=== PATIENT | male | born 1960 | race Caucasian/White ===

== ENCOUNTER 2020-01-29 00:29 | Day surgery (SDC) | payer OTHER, SELFPAY ==
[2020-01-23 13:08] VITALS: BMI 37.2
[2020-01-29 06:39] VITALS: BP 140/79; PULSE 80; RESP 16; TEMP 36.7; O2SAT 95; BMI 36.7
--- NOTE | 2020-01-29 06:59 | WPDANESEPPF ---
Anes - Initial Pre Proc Eval Procedure: Operation Date: 01/29/20 07:30 Proposed Procedures p Screening Colonoscopy - Dusty Mendieta MD Date/Time: 01/29/20 06:59 Surgeon: Dusty Mendieta MD Pre Op Diagnosis: Neoplasm Screening Patient Data Age: 59 Gender: M Height: 1.91 m Weight: 133.2 kg Last Vital Signs Temp 36.7 C 01/29/20 06:39 Pulse 80 01/29/20 06:39 Resp 16 01/29/20 06:39 BP 140/79 01/29/20 06:39 Pulse Ox 95 01/29/20 06:39 Allergies Allergy/AdvReac Type Severity Reaction Status Date / Time No Known Allergies Allergy Mild Verified 01/29/20 06:37 Home Medications Medication Instructions Recorded Confirmed Type lactobacillus rhamnosus R0011 1 cell PO DAILY 01/23/20 01/23/20 History [Probiotic Digestive Care] Patient hx anesthesia problems: none Family hx anesthesia problems: none PMFSH Surgical History Surgical History (Updated 01/28/20 @ 09:49 by Francisco Dallas DO) History of spinal surgery Anes - Eval Final PreProcedure Day of Procedure 01/29/20 06:59 Patient weight: obese Heart: regular rate and rhythm Lungs: clear to auscultation and normal air movement Airway: Mallampati scale class III Neurological: alert and oriented Last oral intake: >/= 8 hours ASA classification: II Emergent: no Anesthetic plan: proceed Anesthesia type and monitoring: general GIVS and standard monitoring Informed Consent: The patient's anesthetic plan and its attendant risks and benefits were discussed with the patient/family/POA. Questions were solicited and answers provided to the satisfaction of the patient/family/POA.
[2020-01-29] MEDS: LACTATED RINGERS 1,000 ML 150 ML IV CONT (07:01)
--- NOTE | 2020-01-29 07:33 | PM.HPGS ---
History of Present Illness History of Present Illness Consent: Risks, benefits, and alternatives have been discussed and questions answered. Patient agrees to proceed with procedure. Chief complaint: Neoplasm Screening Narrative: Dieudonne Russ is a 59 year old male here for his first screening colonoscopy Review of Systems Constitutional: Constitutional: Denies headache(s) and Denies weakness Eyes: Eyes: Denies blurry vision ENT: Reports Normal hearing present, Denies headache(s) and Denies neck pain Cardiovascular: Cardiovascular: Denies chest pain and Denies dyspnea Respiratory: Respiratory: Denies dyspnea Gastrointestinal: Gastrointestinal: Reports no additional gastrointestinal complaints Genitourinary: Genitourinary: Denies dysuria Musculoskeletal: Musculoskeletal: Denies neck pain Integumentary/Breasts: Skin/Breast: Denies dry skin Neurologic: Reports Normal hearing present, Denies headache(s) and Denies weakness Psychiatric: Psychiatric: Denies anxiety Endocrine: Endocrine: Denies change in body appearance Hematologic/Lymphatic: Hematologic/Lymphatic: Denies easy bleeding Allergic/Immunologic: Allergic/Immunologic: Denies urticaria PMFSH Past Medical History Medical History (Updated 01/29/20 @ 07:33 by Dusty Mendieta MD) Colon cancer screening Surgical History Surgical History (Updated 01/28/20 @ 09:49 by Francisco Dallas DO) History of spinal surgery Meds Home Medications and Allergies Home Medications Medication Instructions Recorded Confirmed Type lactobacillus rhamnosus R0011 1 cell PO DAILY 01/23/20 01/23/20 History [Probiotic Digestive Care] Allergies Allergy/AdvReac Type Severity Reaction Status Date / Time No Known Allergies Allergy Mild Verified 01/29/20 06:37 Vital Signs Vital Signs - 24 hr 01/29/20 06:39 Temperature 98.0 F Pulse Rate 80 Respiratory Rate 16 Blood Pressure 140/79 Pulse Oximetry 95 Exam Const: General: comfortable and no acute distress HENMT: General nose exam: Normal nares present Eyes: General: appearance normal, both eyes and all related structures Neck: Neck: no JVD Resp: Auscultation: clear to auscultation bilaterally Cardio: Rate: regular rate Rhythm: regular rhythm GI: Inspection: non-distended GI Palp: Yes Soft to palpation Skin: General skin exam: normal color Neuro: General: gait normal Speech: normal speech Extrem: General: normal to inspection Psych: Mental Status: mental status grossly normal Assessment and Plan Assessment and plan (1) Colon cancer screening: Code(s): Z12.11 - Encounter for screening for malignant neoplasm of colon Status: Acute Assessment and Plan: will proceed with colonoscopy
[2020-01-29 08:08] VITALS: BP 80/45; PULSE 59; RESP 16; O2SAT 94
[2020-01-29 08:09] VITALS: BP 93/53; PULSE 60; RESP 16; O2SAT 94
--- NOTE | 2020-01-29 08:14 | SUR.PHASEII ---
CORRECTION: CHARTING AT 0808 SHOULD HAVE BEEN CHARTED FOR 0759.
[2020-01-29 08:24] VITALS: BP 103/57; PULSE 60; RESP 16; O2SAT 94
== END 2020-01-29 08:37 | disposition home or self-care (01) ==
PROVIDERS: PCP Family Medicine Sports Medicine; Visit Provider Internal Medicine Gastroenterology
PROC: 0DJD8ZZ Inspection of Lower Intestinal Tract, Via Natural or Artificial Opening Endoscopic (ICD-10-PCS; CPT 45378; principal; 2020-01-29 07:30)
DX: Z12.11 Encounter for screening for malignant neoplasm of colon (principal); D12.3 Benign neoplasm of transverse colon; D12.4 Benign neoplasm of descending colon; K63.5 Polyp of colon; K57.30 Diverticulosis of large intestine without perforation or abscess without bleeding; E66.9 Obesity, unspecified; Z68.36 Body mass index [BMI] 36.0-36.9, adult
CPT/HCPCS: 45385; 88305; J2704; J7120

== ENCOUNTER 2023-03-03 10:09 | Emergency (ER) | payer OTHER, SELFPAY ==
--- NOTE | ~2023-03-03 | XR_ITS ---
EXAMINATION: XR lumbar spine 2-3V DATE: 03/03/2023 11:02 INDICATION: Low back pain TECHNIQUE: Anteroposterior and lateral views of the lumbar spine, and cone-down lateral view of the l umbosacral junction were obtained. COMPARISON: None. FINDINGS: No fracture, dislocation, or subluxation. There is moderate loss of intervertebral disc spa ce height at L4-5 and L5-S1. The vertebral body heights are maintained. There is moderate facet joint osteoarthritis of the lower lumbar spine. IMPRESSION: 1. Moderate lumbar spondylosis without acute findings. Reviewed, dictated and finalized at location A.
[2023-03-03 10:23] VITALS: BP 147/95; PULSE 87; RESP 14; TEMP 36.6; O2SAT 97
--- NOTE | 2023-03-03 10:46 | ED.BACK ---
HPI - Back Pain/Injury General Chief Complaint: Back Pain/Injury Stated Complaint: Back Pain Source: patient History of Present Illness HPI Narrative: 62-year-old male presents to urgent care with complaints of tailbone pain. Patient states on Sunday he was only on something when he slipped and fell directly onto his tailbone. Patient states the pain goes into his left buttock. Patient states he is having some numbness and tingling down his left leg. Denies any saddle anesthesia, incontinence of urine or stool, fevers, chills, chest pain, shortness of breath. Patient has been taking ibuprofen at home without relief. Some parts of this dictation were generated by voice recognition software and may contain typographical and/or grammatical inaccuracies. Related Data Home Medications Medication Instructions Recorded Confirmed Lactobacillus rhamnosus GG 20 1 cell PO DAILY 01/23/20 03/03/23 billion cell capsule (Probiotic Digestive Care) Allergies Allergy/AdvReac Type Severity Reaction Status Date / Time No Known Allergies Allergy Mild Verified 03/03/23 10:42 Review of Systems Review of Systems: Pertinent positives and pertinent negatives per HPI. [facility], [facility] Past Medical History Medical History (Updated 03/03/23 @ 11:25 by Neelima Lockhart, ELIAZAR) Bloating Colon cancer screening Colon, diverticulosis Irritable bowel syndrome with constipation Surgical History Surgical History (Reviewed 02/04/20 @ 08:17 by Mariam Matthews [facility] [address]) History of spinal surgery Comments At the time of my signature, I reviewed and agree with the nursing past medical, surgical, social, and family history. There is no relevant family history pertinent to the patient complaint. Exam Narrative: GENERAL: This is a well-nourished, well-developed patient, in no apparent distress. HEAD: normocephalic, atraumatic. EYES: Sclera clear/white. Vision is grossly intact. EARS: External ears normal, auditory canals clear and without drainage. Hearing grossly intact. NOSE: External nose normal with no obvious nasal discharge, nares without redness, no rhinorrhea. THROAT: Mucous membranes moist, posterior pharynx clear. NECK: Neck supple, non-tender without lymphadenopathy, masses or thyromegaly. CARDIOVASCULAR: Regular rate RESPIRATORY: No respiratory distress SKIN: warm, intact with no suspicious lesions or rash, good texture and turgor. NEURO: awake, alert, and oriented to person, place and time. There were no obvious focal neurologic abnormalities. EXTREMITIES: No clubbing, cyanosis, or edema. No joint tenderness, effusion, or edema noted. BACK: Slight tenderness to tailbone area and lower lumbar. Course Course Level of Care: Express Care Visit Vital Signs Vital signs: Vital Signs Temperature 98 F 03/03/23 10:23 Pulse Rate 87 03/03/23 10:23 Respiratory Rate 14 03/03/23 10:23 Blood Pressure 147/95 H 03/03/23 10:23 Pulse Oximetry 97 03/03/23 10:23 Oxygen Delivery Room Air 03/03/23 10:23 Temperature 98 F 03/03/23 10:23 Pulse Rate 87 03/03/23 10:23 Respiratory Rate 14 03/03/23 10:23 Blood Pressure 147/95 H 03/03/23 10:23 Pulse Oximetry 97 03/03/23 10:23 Oxygen Delivery Room Air 03/03/23 10:23 reviewed MDM - Back Pain/Injury MDM Narrative Medical decision making narrative: Take pain medications as directed. Take ibuprofen as directed to decrease inflammation and to help pain. Take Cyclobenzaprine (muscle relaxer) as directed. Do not drink, drive, operate machinery, or do anything dangerous while taking this medication Exercise:Combine aerobic exercise, like walking or swimming, with specific exercises to keep the muscles in your back and abdomen strong and flexible. Proper Lifting:Be sure to lift heavy items with your legs, not your back. Do not bend over to pick something up. Keep your back straight and bend at your knees. Weight:Maintain a healthy weight. Being overweight p
== END 2023-03-03 11:30 | disposition home or self-care (01) ==
PROVIDERS: Emergency Provider Nurse Practitioner Family; PCP Family Medicine Sports Medicine
DX: M47.816 Spondylosis without myelopathy or radiculopathy, lumbar region (principal); M54.32 Sciatica, left side
CPT/HCPCS: 72100; 99213; G0463